=== PATIENT | male | born 1960 | race African-American/Black ===

== ENCOUNTER → 2016-10-28 | Outpatient (CLI) | payer OTHER | LOC: OD 13:02 | PROVIDERS: ATTEND Family Medicine | DX: M25.519 Pain in unspecified shoulder (principal) ==

== ENCOUNTER 2018-02-02 04:39 | Emergency (ER) | payer OTHER ==
[2018-02-02] MEDS ORDERED: DEXAMETHASONE SOD PHOSPHATE INJ 4 MG/1 ML VIAL IM ONE (06:43)
[2018-02-02] MEDS ORDERED: KETOROLAC TROMETHAMINE 60 MG/2 ML SDV IM ONE (06:43)
--- NOTE | 2018-02-02 06:43 | ER Document Report ---
ED Neck/Back Problem - General Chief Complaint: Low Back Pain Stated Complaint: BACK PAIN Time Seen by Provider: 02/02/18 06:20 Notes: 58-year-old male to the emergency department chief complaint of low back pain and shooting down the left leg. States that this happens on a regular basis and he used to get the shot of cortisone and some Toradol and it makes it all better. Denies any fever, chills, sweats. Denies any loss of bowel or bladder function. This is a chronic issue. Pain radiates down the side of the left leg. TRAVEL OUTSIDE OF THE [place] IN LAST 30 DAYS: No - HPI Onset: Last week Where: Home - Related Data Allergies/Adverse Reactions: No Known Allergies Allergy (Unverified 09/18/12 04:37) Past Medical History - General Information source: Patient - Social History Smoking Status: Never Smoker Chew tobacco use (# tins/day): No Frequency of alcohol use: None Drug Abuse: None Lives with: Family Family History: Reviewed & Not Pertinent Patient has suicidal ideation: No Patient has homicidal ideation: No Renal/ Medical History: Denies: Hx Peritoneal Dialysis Review of Systems - Review of Systems Constitutional: denies: Fever, Malaise, Weakness EENT: denies: Eye pain, Eye discharge, Double vision, Difficulty swallowing Cardiovascular: denies: Chest pain, Palpitations, Heart racing Respiratory: denies: Cough, Hurts to breathe, Short of breath Gastrointestinal: denies: Abdominal pain, Diarrhea, Nausea, Vomiting Genitourinary: denies: Burning, Dysuria, Discharge Musculoskeletal: Back pain. denies: Joint pain, Muscle pain, Leg swelling Skin: denies: Dryness, Lesions, Lumps, Rash Neurological/Psychological: denies: Confusion, Weakness, Numbness Physical Exam - Vital signs Vitals: Temp Pulse Resp BP Pulse Ox 98.9 F 66 18 144/67 H 95 02/02/18 04:44 02/02/18 04:44 02/02/18 04:44 02/02/18 04:44 02/02/18 04:44 Interpretation: Normal - General General appearance: Appears well, Alert - Respiratory Respiratory status: No respiratory distress Chest status: Nontender Breath sounds: Normal Chest palpation: Normal - Cardiovascular Rhythm: Regular Heart sounds: Normal auscultation Murmur: No - Abdominal Inspection: Normal Distension: No distension Bowel sounds: Normal Tenderness: Nontender Organomegaly: No organomegaly - Back Back: Normal, Nontender, Other - Tenderness to palpation in the left lateral leg tensor fascia rose area. No: Deformity/step-off - Neurological Neuro grossly intact: Yes Cognition: Normal Orientation: AAOx4 [place] Coma Scale Eye Opening: Spontaneous Grace Coma Scale Verbal: Oriented Grace Coma Scale Motor: Obeys Commands Grace Coma Scale Total: 15 Speech: Normal Motor strength normal: LUE, RUE, LLE, RLE Sensory: Normal Course - Re-evaluation Re-evalutation: 02/02/18 07:10 Give patient a shot of Decadron and Toradol. Given him the red flag warning signs with regards to low back pain and sciatica. Patient verbalized understanding. Will discharge in stable condition after treatment. - Vital Signs Vital signs: Temp Pulse Resp BP Pulse Ox 98.9 F 66 18 144/67 H 95 02/02/18 04:44 02/02/18 04:44 02/02/18 04:44 02/02/18 04:44 02/02/18 04:44 Discharge - Discharge Clinical Impression: Sciatic leg pain Condition: Good Disposition: HOME, SELF-CARE Instructions: Low Back Pain ([facility]), Warm Packs ([facility]) Prescriptions: Ibuprofen [Motrin 800 mg Tablet] 800 mg PO Q8H PRN 10 Days #30 tab PRN Reason: For Pain Scale 3-4 Methylprednisolone [Medrol Dosepack (4 mg/Tab) 21 Tab/Dosepak] 21 tab PO ASDIR PRN #1 dspk PRN Reason: Referrals: YULIET OLIVER MD [Primary Care Provider] - Follow up as needed
[2018-02-02 07:35] VITALS: BP 136/56
== END 2018-02-02 07:35 | disposition home or self-care (01) ==
LOC: ER 04:39
DX: M54.40 Lumbago with sciatica, unspecified side (principal)
CPT/HCPCS: 99283; 96372; J1100; J1885

== ENCOUNTER 2018-02-03 08:26 | Emergency (ER) | payer OTHER ==
[2018-02-03 08:32] VITALS: BP 168/80
[2018-02-03] MEDS ORDERED: KETOROLAC TROMETHAMINE 60 MG/2 ML SDV IM ONE (09:13)
[2018-02-03] MEDS ORDERED: OXYCODONE-ACETAMINOPHEN 5-325 MG TABLET PO ONE (09:13)
--- NOTE | 2018-02-03 09:13 | ER Document Report ---
ED General Pain - General Chief Complaint: Low Back Pain Stated Complaint: BACK PAIN Time Seen by Provider: 02/03/18 09:08 Notes: Patient was seen here yesterday for low back pain that is radiating in his left leg. Did not get his medications filled. States that he does not feel like he can go to work today because of pain still getting worse. Denies any fever chills or sweats. No change in bowel or bladder function. Shot of Toradol and Decadron yesterday. Was given a prescription for ibuprofen and Medrol Dosepak. TRAVEL OUTSIDE OF THE [place] IN LAST 30 DAYS: No - Related Data Allergies/Adverse Reactions: No Known Allergies Allergy (Verified 02/03/18 08:27) Past Medical History - General Information source: Patient - Social History Smoking Status: Current Every Day Smoker Chew tobacco use (# tins/day): No Frequency of alcohol use: Occasional Drug Abuse: None Lives with: Family Family History: Reviewed & Not Pertinent Patient has suicidal ideation: No Patient has homicidal ideation: No Renal/ Medical History: Denies: Hx Peritoneal Dialysis Past Surgical History: Denies: Hx Orthopedic Surgery Review of Systems - Review of Systems Notes: Constitutional: denies: Chills, Diaphoresis, Fever, Malaise, Weakness EENT: denies: Eye discharge, Blurred vision, Tearing, Double vision, Nose congestion, Nose discharge, Throat swelling, Mouth pain Cardiovascular: denies: Palpitations, Heart racing, Orthopnea, Dyspnea, Chest pain Respiratory: denies: Cough, Hurts to breathe, Wheezing, Shortness of breath Gastrointestinal: denies: Abdominal pain, Diarrhea, Nausea, Vomiting, Black stools, bright red blood in stool Genitourinary: denies: Burning, Dysuria, Discharge, Frequency, Flank pain, Hematuria Musculoskeletal: denies: Joint pain, Joint swelling. Significant for: Left- sided low back pain radiating down the left leg with sciatica Hematologic/Lymphatic: denies: Anemia, Easy bleeding, Easy bruising, Blood clots Neurological/Psychological: denies: Confusion, Dementia, Depression, Loss of consciousness. Denies any loss of bowel or bladder function. Skin: No lesions, no masses, no skin breakdown, no abscesses Physical Exam - Vital signs Vitals: Temp Pulse Resp BP Pulse Ox 98.4 F 71 18 168/80 H 96 02/03/18 08:31 02/03/18 08:31 02/03/18 08:31 02/03/18 08:31 02/03/18 08:31 Interpretation: Normal - General General appearance: Appears well, Alert - HEENT Head: Normocephalic, Atraumatic Eyes: Normal Pupils: PERRL - Respiratory Respiratory status: No respiratory distress Chest status: Nontender Breath sounds: Normal Chest palpation: Normal - Cardiovascular Rhythm: Regular Heart sounds: Normal auscultation Murmur: No - Abdominal Inspection: Normal Distension: No distension Bowel sounds: Normal Tenderness: Nontender Organomegaly: No organomegaly - Back Back: Normal, Tender - Left lower lumbar paraspinal muscles on the left. Tenderness to palpation left lateral leg - Extremities General upper extremity: Normal inspection, Nontender, Normal color, Normal ROM , Normal temperature General lower extremity: Normal inspection, Nontender, Normal color, Normal ROM , Normal temperature, Normal weight bearing. No: Ranjit's sign - Neurological Neuro grossly intact: Yes Cognition: Normal Orientation: AAOx4 [place] Coma Scale Eye Opening: Spontaneous Grace Coma Scale Verbal: Oriented Grace Coma Scale Motor: Obeys Commands [place] Coma Scale Total: 15 Speech: Normal Motor strength normal: LUE, RUE, LLE, RLE Sensory: Normal. No: Altered light touch - No significant discrepancies of the lower extremities. Palpable pulses bilateral lower extremities. - Psychological Associated symptoms: Normal affect, Normal mood - Skin Skin Temperature: Warm Skin Moisture: Dry Skin Color: Normal Course - Re-evaluation Re-evalutation: 02/03/18 10:28 Laboratory 02/03/18 09:20 Urine Color STRAW Urine Appearance CLEAR Urine pH 6.0 Ur Specific [place] 1.002 Urine Protein NEGATIVE Urine Glucose (UA) NEGATIVE Urine Ketones NEGATIVE Urine Blood NEGATIVE Urine Nitrite NEGATIVE Urine Bilirubin NEGATIVE Urine Urobilinogen NEGATIVE Ur Leukocyte Esterase NEGATIVE Urine WBC (Auto) 0 Urine RBC (Auto) 0 Urine Mucus (Auto) RARE Urine Ascorbic Acid NEGATIVE Lumbar Spine CT 02/03/18 09:14 IMPRESSION: Left foraminal and lateral disc protrusion at L3-4 causing moderate left foraminal narrowing. Patient has significant findings on CT scan. Will consult with pain medicine physician and see if I can get him seen by Dr. Cornelius or Dr. Christianson as soon as possible. - Vital Signs Vital signs: Temp Pulse Resp BP Pulse Ox 98.4 F 71 18 168/80 H 96 02/03/18 08:31 02/03/18 08:31 02/03/18 08:31 02/03/18 08:31 02/03/18 08:31 Discharge - Discharge Clinical Impression: Bulging of lumbar intervertebral disc Condition: Good Disposition: HOME, SELF-CARE Instructions: Herniated Disc ([facility]) Prescriptions: Oxycodone HCl/Acetaminophen [Percocet 5-325 mg Tablet] 1 - 2 tab PO Q6H PRN 5 Days #15 tablet PRN Reason: Referrals: CRISTINA CHRISTIANSON MD [ACTIVE STAFF] - 02/07/18 10:30 am
[2018-02-03 09:42] LABS: APPEARANCE,URINE CLEAR; BILIRUBIN,URINE NEGATIVE (NEGATIVE); COLOR,URINE STRAW; GLUCOSE, URINE NEGATIVE (NEGATIVE); KETONES,URINE NEGATIVE (NEGATIVE); LEUKOCYTE ESTERASE,URINE NEGATIVE (NEGATIVE); NITRITE,URINE NEGATIVE (NEGATIVE); PROTEIN,URINE NEGATIVE (NEGATIVE); URINE SPECIFIC GRAVITY 1.002; UROBILINOGEN,URINE NEGATIVE mg/dL (<2.0)
--- NOTE | 2018-02-03 09:53 | RADIOLOGY REPORT (SQ) ---
EXAM DESCRIPTION: CT LUMBAR SPINE WITHOUT COMPLETED DATE/TIME: 02/03/2018 9:34 am REASON FOR STUDY: severe back pain and numbness in left leg COMPARISON: None. TECHNIQUE: Axial images acquired through the lumbar spine without intravenous contrast. Images revi ewed with lung, soft tissue and bone windows. Reconstructed coronal and sagittal MPR images reviewed . All images stored on PACS. All CT scanners at this facility use dose modulation, iterative reconstruction, and/or weight based d osing when appropriate to reduce radiation dose to as low as reasonably achievable (ALARA). [facility]: Dose Right [facility]: CareDose [facility]: Dose Right [facility]: Teradose 4D [facility]: Rapp IT Up RADIATION DOSE: 15.6 mGy. LIMITATIONS: None. FINDINGS: SEGMENTATION: Normal. No transitional anatomy. ALIGNMENT: Normal. VERTEBRAL BODIES: No fractures. No dislocation. No acute findings. DISCS: The T11-12, T12-L1, L1-2, and L2-3 levels are unremarkable. At L3-4, very mild posterior disc bulging is present with mild facet and ligament hypertrophy. No ce ntral stenosis. No right foraminal narrowing. Moderate left foraminal narrowing related to a left f oraminal and lateral disc protrusion, best shown on sagittal image 33 and axial image 50 through 53. At L4-5, minimal posterior diffuse disc bulge and mild bilateral facet and ligament hypertrophy are p resent. No central stenosis. Mild bilateral inferior foraminal narrowing without exit L4 nerve root impingement. At L5-S1, no central or foraminal encroachment is present. Minimal posterior disc bulging. Minimal facet hypertrophy. PEDICLES, TRANSVERSE PROCESSES: No fractures. No dislocation. No acute findings. FACETS, POSTERIOR ELEMENTS: No fractures. No dislocation. No spinal stenosis. HARDWARE: None in the spine. VISUALIZED RIBS: No fractures. SOFT TISSUES: No significant or acute finding in adjacent soft tissues. OTHER: No other significant finding. IMPRESSION: Left foraminal and lateral disc protrusion at L3-4 causing moderate left foraminal narro wing. TECHNICAL DOCUMENTATION: JOB ID: [id number] Quality ID # [id number]: Final reports with documentation of one or more dose reduction techniques (e.g., Au tomated exposure control, adjustment of the mA and/or kV according to patient size, use of iterative reconstruction technique) 2010 [employer]- All Rights Reserved Reading location - IP/workstation name: [email or web address]
== END 2018-02-03 10:45 | disposition home or self-care (01) ==
LOC: ER 08:26
DX: M51.26 Other intervertebral disc displacement, lumbar region (principal); F17.200 Nicotine dependence, unspecified, uncomplicated
CPT/HCPCS: 99284; 96372; 81001; 72131; J1885

== ENCOUNTER → 2018-02-07 | Outpatient (CLI) | payer OTHER ==
--- NOTE | 2018-02-07 15:54 | RADIOLOGY REPORT (SQ) ---
EXAM DESCRIPTION: CERV SP 3 VIEW OR LESS COMPLETED DATE/TIME: 02/07/2018 1:46 pm REASON FOR STUDY: CERVICALGIA (M54.2) M54.2 CERVICALGIA COMPARISON: None. NUMBER OF VIEWS: Four views. TECHNIQUE: AP, lateral, and oblique radiographic images acquired of the cervical spine. LIMITATIONS: None. FINDINGS: MINERALIZATION: Normal. SEGMENTATION: Normal. ALIGNMENT: Reversal of the lordotic curve. VERTEBRAE: Maintained height. No fracture or worrisome bone lesion. DISCS: Multilevel disc space narrowing with osteophytes. POSTERIOR ELEMENTS: Pedicles and facets are intact. No posterior arch defects. Facet arthropathy is present. FORAMINA: Narrowed at the levels of maximal disc and facet disease. HARDWARE: None in the spine. PARASPINAL SOFT TISSUES: Normal. OTHER: No other significant finding. IMPRESSION: Cervical disc disease. TECHNICAL DOCUMENTATION: JOB ID: [id number] [employer]- All Rights Reserved Reading location - IP/workstation name: [email or web address]
== END ==
LOC: RAD 13:12
PROVIDERS: ATTEND Pain Medicine Interventional Pain Medicine
DX: M54.2 Cervicalgia (principal)
CPT/HCPCS: 72040

== ENCOUNTER → 2018-11-23 | Outpatient (CLI) | payer OTHER ==
--- NOTE | 2018-11-23 08:58 | RADIOLOGY REPORT (SQ) ---
EXAM DESCRIPTION: U/S ABD AORTIC SCREENING COMPLETED DATE/TIME: 11/23/2018 8:42 am REASON FOR STUDY: AORTIC ANEURYSM OF UNSPECIFIED SITE, WITHOUT RUPTURE I71.9 AORTIC ANEURYSM OF UNS PECIFIED SITE, WITHOUT RUPTURE COMPARISON: None. TECHNIQUE: Static and dynamic grayscale images acquired of the aorta and stored on PACs. Selected co michelle Doppler and spectral images recorded. LIMITATIONS: None. FINDINGS: AORTIC CALIBER MAXIMAL PROXIMAL: 2.7 cm. MID: 2.1 cm. DISTAL: 2.0 cm. ILIAC DIAMETER RIGHT: 1.2 cm. LEFT: 1.3 cm. OTHER: Scattered atherosclerotic plaque throughout the visualized aorta. IMPRESSION: Proximal abdominal aorta measures up to 2.7 cm with scattered atherosclerosis. Follow-u p recommendations as below. COMMENT: Aortic aneurysm imaging followup: 2.6-2.9 cm Every 5 years* *Based upon the Society for Vascular Surgery Guidelines: J Vasc Surg. 2009 Oct;50(4 Suppl):S2-49 *For aortas of maximum diameter of 2.6-2.9 cm meeting the criteria for AAA (?1.5 x proximal normal se gment) TECHNICAL DOCUMENTATION: JOB ID: [id number] [employer]- All Rights Reserved Reading location - IP/workstation name: [email or web address]
== END ==
LOC: RAD 07:51
PROVIDERS: ATTEND Physician Assistant
DX: Z13.6 Encounter for screening for cardiovascular disorders (principal); I71.9 Aortic aneurysm of unspecified site, without rupture
CPT/HCPCS: 76706

== ENCOUNTER → 2019-12-01 | Outpatient (CLI) | payer OTHER ==
--- NOTE | 2019-12-01 15:17 | RADIOLOGY REPORT (SQ) ---
EXAM DESCRIPTION: SHOULDER RIGHT 2 OR MORE VIEWS IMAGES COMPLETED DATE/TIME: 12/01/2019 3:02 pm REASON FOR STUDY: PAIN IN RIGHT SHOULDER COMPARISON: None. NUMBER OF VIEWS: Three views right shoulder LIMITATIONS: None. FINDINGS: AC joint may be minimally widened, 9 mm. Correlate with any injury history to suggest low grade separation. This may otherwise be physiologic, depending on clinical presentation. No fractu re or bone lesion. Clear right lung. OTHER: No other significant finding. IMPRESSION: As above. TECHNICAL DOCUMENTATION: JOB ID: [id number] Reading location - IP/workstation name: [email or web address]
== END ==
LOC: OD 14:52
PROVIDERS: ATTEND Physician Assistant
DX: M25.511 Pain in right shoulder (principal)

== ENCOUNTER 2020-07-14 16:56 | Emergency (ER) | payer OTHER ==
[2020-07-14] MEDS ORDERED: DILTIAZEM HCL/D5W 125 MG/125 ML RTUINJ IV ONE (17:01)
[2020-07-14] MEDS ORDERED: DILTIAZEM HCL/D5W 125 MG/125 ML RTUINJ IV PRN (17:14)
[2020-07-14 17:17] LABS: ABSOLUTE BASOPHILS # (AUTO) 0.1 10^3/uL (0.0-0.2); ABSOLUTE EOSINOPHILS # (AUTO) 0.1 10^3/uL (0.0-0.6); ABSOLUTE LYMPHOCYTES (AUTO) 2.6 10^3/uL (0.5-4.7); ABSOLUTE MONOCYTES (AUTO) 0.5 10^3/uL (0.1-1.4); BASOPHILS % (AUTO) 1.3 % (0-2); EOSINOPHILS % (AUTO) 2.3 % (0-6); HEMATOCRIT 42.7 % (37.9-51.0); HEMOGLOBIN 14.2 g/dL (13.5-17.0); LYMPHOCYTES % (AUTO) 48.7 % (13-45); MEAN CORPUSCULAR HEMOGLOBIN 27.3 pg (27.0-33.4); MEAN CORPUSCULAR HGB CONC 33.3 g/dL (32.0-36.0); MEAN CORPUSCULAR VOLUME 82 fl (80-97); MONOCYTES % (AUTO) 10.2 % (3-13); PLATELET COUNT 203 10^3/uL (150-450); RED BLOOD COUNT 5.19 10^6/uL (4.35-5.55); RED CELL DISTRIBUTION WIDTH 14.1 % (11.5-14.0); SEGMENTED NEUTROPHILS % (AUTO) 37.5 % (42-78); TOTAL CELLS COUNTED % (AUTO) 100 %; WHITE BLOOD COUNT 5.3 10^3/uL (4.0-10.5)
[2020-07-14 17:40] LABS: ALBUMIN 4.3 g/dL (3.5-5.0); ALKALINE PHOSPHATASE 59 U/L (38-126); ANION GAP 10 (5-19); ASPARTATE AMINO TRANSFERASE 30 U/L (17-59); BILIRUBIN,DIRECT 0.2 mg/dL (0.0-0.4); BILIRUBIN,TOTAL 0.4 mg/dL (0.2-1.3); BLOOD UREA NITROGEN 13 mg/dL (7-20); CALCIUM 9.5 mg/dL (8.4-10.2); CARBON DIOXIDE 22 mmol/L (22-30); CHLORIDE 106 mmol/L (98-107); CREATINE KINASE 233 U/L (55-170); GLUCOSE 101 mg/dL (75-110); POTASSIUM 3.4 mmol/L (3.6-5.0); TOTAL PROTEIN 7.1 g/dL (6.3-8.2)
[2020-07-14 18:38] LABS: PHOSPHORUS 2.9 mg/dL (2.5-4.5)
--- NOTE | 2020-07-14 18:46 | RADIOLOGY REPORT (SQ) ---
EXAM DESCRIPTION: CHEST SINGLE VIEW IMAGES COMPLETED DATE/TIME: 07/14/2020 6:01 pm REASON FOR STUDY: chest pain COMPARISON: Two-view chest 06/04/2015 EXAM PARAMETERS: NUMBER OF VIEWS: One view. TECHNIQUE: Single frontal radiographic view of the chest acquired. RADIATION DOSE: NA LIMITATIONS: None. FINDINGS: LUNGS AND PLEURA: No opacities, masses or pneumothorax. No pleural effusion. MEDIASTINUM AND HILAR STRUCTURES: No masses. Contour normal. HEART AND VASCULAR STRUCTURES: Heart normal in size. Normal vasculature. BONES: No acute findings. HARDWARE: None in the chest. OTHER: No other significant finding. IMPRESSION: NO ACUTE RADIOGRAPHIC FINDING IN THE CHEST. TECHNICAL DOCUMENTATION: JOB ID: [id number] [employer]- All Rights Reserved Reading location - IP/workstation name: [email or web address]
[2020-07-14 19:05] LABS: CREATINE KINASE MB 1.69 ng/mL (<4.55)
[2020-07-14 19:09] LABS: TROPONIN I < 0.012 ng/mL
--- NOTE | 2020-07-14 19:38 | ER Document Report ---
ED Cardiac - General TRAVEL OUTSIDE OF THE [place] IN LAST 30 DAYS: No <GREGORY FRANCES - Last Filed: 07/14/20 21:20> <YESSIHÉCTOR Roderick - Last Filed: 07/14/20 23:34> - General Chief Complaint: Chest Pain Stated Complaint: CHEST PAIN Time Seen by Provider: 07/14/20 17:35 Primary Care Provider: ERIKA MILTON MD [ACTIVE STAFF] - Follow up as needed YULIET VARGAS MD [Primary Care Provider] - Follow up as needed - HPI Notes: 60-year-old male presents to ED for evaluation of patient starting this evening. Patient reports he felt his heart racing while he was barbecuing. Notes that he felt like he could not catch his breath since his heart was racing so quickly. He reports that they called EMS and determined his heart rate to be well over 200. States that he was given a medication in route by EMS determined to be adenosine in order to slow his heart rate. They determined he to be in atrial fibrillation and started him on Cardizem. On review of EMS records, he received 18 mg IV bolus. Denies a history of cardiac complaints in the past. Reports he has not seen a pants busheler in 5 to 6 years. He denies history of atrial fibrillation. Denies heavy alcohol usage. Denies any chest pain associated with this. Denies nausea, vomiting, dizziness, lightheadedness, abdominal discomfort, or changes in bowel or bladder habit. Denies any bleeding. Patient reports he has not had a recent stress test. Patient does not take any aspirin or other anticoagulants on a daily basis. He denies concerns for Covid and has not done any recent travel at this time. (GREGORY FRANCES) - Related Data Allergies/Adverse Reactions: No Known Allergies Allergy (Verified 02/03/18 08:27) Past Medical History - Social History Smoking Status: Current Every Day Smoker Frequency of alcohol use: Heavy Drug Abuse: None Family History: Reviewed & Not Pertinent Patient has homicidal ideation: No - Past Medical History Cardiac Medical History: Reports: Hx Hypercholesterolemia, Hx Hypertension Renal/ Medical History: Denies: Hx Peritoneal Dialysis Past Surgical History: Denies: Hx Orthopedic Surgery <GREGORY FRANCES - Last Filed: 07/14/20 21:20> Review of Systems <GREGORY FRANCES - Last Filed: 07/14/20 21:20> - Review of Systems Notes: Constitutional: Negative for fever. HENT: Negative for sore throat. Eyes: Negative for visual changes. Cardiovascular: Negative for chest pain. Positive for palpitations Respiratory: Negative for shortness of breath. Gastrointestinal: Negative for abdominal pain, vomiting or diarrhea. Genitourinary: Negative for dysuria. Musculoskeletal: Negative for back pain. Skin: Negative for rash. Neurological: Negative for headaches, weakness or numbness. 10 point ROS negative except as marked above and in HPI. (GREGORY FRANCES) Physical Exam <JUAN DANIELGREGORY Victor - Last Filed: 07/14/20 21:20> - Vital signs Vitals: Resp 16 07/14/20 16:56 General: No acute distress. Alert and oriented x3. Sitting comfortably in a stretcher. Skin: Intact without any jaundice, pallor, or erythema. Warm and dry. HEENT: Normocephalic, atraumatic. Pupils are equal round reactive to light and accommodation. Extraocular movements are intact. TMs without erythema or bulging. Canals are clear. Nares patent without any discharge. Teeth in good condition. Pharynx without erythema, edema, or exudates. No tonsillar enlargement. Uvula is midline. Airway is patent. Neck: Supple with no lymphadenopathy. Full range of motion. Heart: Irregularly irregular rapid rate and rhythm. No murmurs, rubs, or gallops. Lungs: Clear to auscultation bilaterally. No wheezes, rhonchi, rales. Equal chest expansion. No retractions. Abdomen: Soft, nontender to palpation, nondistended. Positive bowel sounds in all 4 quadrants. No hepatosplenomegaly. No masses. No CVA tenderness bilaterally. Neuro: GCS 15. Moving all extremities without discomfort. Extremities: No calf tenderness or edema. No cyanosis or clubbing. Radial and pedal pulses 2+ bilaterally. Brisk capillary refill. Psych: Mood and affect appropriate. (GREGORY FRANCES) Course - Laboratory Results Result Diagrams: 07/14/20 16:59 07/14/20 16:59 <GREGORY FRANCES - Last Filed: 07/14/20 21:20> - Laboratory Results Result Diagrams: 07/14/20 16:59 07/14/20 16:59 Critical Laboratory Results Reviewed: Yes Attending or Supervising Physician who Reviewed Labs: ISAAK LEAL - aware of elevated troponin and a-fib - Radiology Results Critical Radiology Results Reviewed: No Critical Results - EKG Interpretation by [place] Rhythm: A.Fib [place]/QRS: No: Right axis deviation, Left axis deviation, RBBB, LBBB, IVCD, LAHB /LAFB, LPHB/LPFB, Bifasicular block Voltage: Consistent with LVH Heart block present: No: 1st Degree, Mobitz 1, Mobitz 2, CHB (3rd degree block) When compared to previous EKG there are: No significant change <HÉCTOR DICKSON - Last Filed: 07/14/20 23:34> - Re-evaluation Re-evalutation: 07/14/20 21:16 60-year-old male presents to ED for evaluation of episode of acute A. fib with RVR. Patient was found of a heart rate over 200 by EMS. They gave him adenosi ne to determine his rate was atrial fibrillation and gave him Cardizem as a bolus. On arrival to the emergency department, patient has a rate in the 120s and is still in A. fib. Patient was placed on a Cardizem drip with an initial rate of 5. We did not rebolused him. Patient was found to require up titration and was placed on 7.5. Patient has been holding well in the 90s to low 100s at this rate. Patient's blood work was obtained. There is no evidence of electrolyte abnormalities or evidence of infection. Magnesium is within normal limits. Troponin is negative. Chest x-ray shows no evidence of acute cardiac or pulmonary pathology. Results were all discussed with the patient. At this time, I did place a consult to Dr. Milton of cardiology. We discussed the indications for admission versus outpatient management. The initial plan is to give patient 90 mg of Cardizem and titrate down his Cardizem drip and 1 hour after administration of medication. If patient is able to persist for an additional hour without large elevations in his heart rate he recommends that patient be discharged home on 60 mg every 6 hours of Cardizem. He also recommends patient be placed on 5 mg twice daily of Eliquis for the next month should they need to cardiovert patient. Was determined as patient has a [id number] score of 1. I did discuss all of this with the patient and should he fail this course of management he does see Dr. Vargas for outpatient care and will be admitted to Dr. Vargas service in care of Dr. Bernardo who is covering patient is agreeable with this plan of care for further management at this time. I have signed patient out to MARCO ANTONIO Dickson who will determine his disposition. 07/14/20 21:20 (GREGORY FRANCES) 07/14/20 23:17 I assumed care of patient at shift change at 8 PM. Briefly, patient presented the ER with acute onset of A. fib with RVR with associated palpitations and chest pain. Reportedly has rate near 200. He was placed on a Cardizem drip which did allow him to achieve rate control in the low 100s and resolved his symptoms. Previous provider had spoke with cardiology and they had recommended giving the patient 90 mg of Cardizem p.o. and then titrating his drip down and discontinue it at 1 hour. Then continue to monitor patient in rate and if he remains asymptomatic with good rate control he may discharge home with Cardizem and Eliquis cardiology follow-up. I have monitored the patient for the past 2 hours since he received p.o. Cardizem and over an hour since his drip was stopped and he has remained well rate controlled ranging from 90s to 110. He remains asymptomatic in the ED and says he basically just feels fatigued. He denies any palpitations, chest pain, shortness of breath. His 3hr troponin did slightly elevate from 0.0125 to 0.025, Dr. Martinez is aware and she agrees that this is likely due to the A. fib with RVR and not due to ischemia or an acute CA. I discussed the current plan with the patient and significant other and they are agreeable to discharging home. We will give them a dose of Cardizem to take home so that he may take it in the water trainer since pharmacies are not open right now he received his first dose of Eliquis in the ED and does not need another dose until midmorning tomorrow. He is to call cardiology to schedule a follow-up for in the next few days as well as his primary care doctor. Strict return factors were discussed regarding chest pain, shortness of breath, syncope, palpitations or extremely elevated heart rate. They can monitor his heart rate at home by checking his pulse using a timer, fitness watches, [id number] pulse oximeter, or he may return here if he has any concerns. (HÉCTOR DICKSON) - Vital Signs Vital signs: Temp Pulse Resp BP Pulse Ox 18 109/71 94 07/14/20 23:01 07/14/20 23:00 07/14/20 19:29 - Laboratory Results Laboratory Results Interpreted: 07/14/20 07/14/20 16:59 16:59 RDW 14.1 H Lymph % (Auto) 48.7 H Seg Neutrophils % 37.5 L Potassium 3.4 L Creatine Kinase 233 H - EKG Interpretation by Me Additional EKG results interpreted by me: 07/14/20 23:33 ECG reviewed by ER physician. no STEMI (HÉCTOR DICKSON) Discharge <GREGORY FRANCES - Last Filed: 07/14/20 21:20> <HÉCTOR DICKSON - Last Filed: 07/14/20 23:34> - Discharge Clinical Impression: Atrial fibrillation with RVR Condition: Stable Disposition: HOME, SELF-CARE Instructions: Atrial Fibrillation ([facility]) Additional Instructions: Take the Cardizem and Eliquis as scheduled. Call cardiology to schedule an appointment for soon as possible for follow-up. You may also follow-up with your primary care doctor in the next day or two for recheck. Return to the ER if your condition worsenschest pain, palpitations, shortness of breath, elevated heart rate, or any other concerning signs or symptoms.. Prescriptions: Diltiazem HCl [Cardizem 60 mg Tablet] 60 mg PO Q6H #60 tablet Apixaban [Eliquis 5 mg Tablet] 5 mg PO BID 15 Days #30 tablet Referrals: YULIET VARGAS MD [Primary Care Provider] - Follow up as needed ERIKA MILTON MD [ACTIVE STAFF] - Follow up as needed
[2020-07-14] MEDS ORDERED: DILTIAZEM HCL 90 MG TABLET PO ONE (19:50)
[2020-07-14] MEDS ORDERED: APIXABAN 5 MG TABLET PO ONE (19:50)
[2020-07-14] MEDS ORDERED: ONDANSETRON HCL INJ/PF 4 MG/2 ML SDV IV ONE (20:03)
[2020-07-14] MEDS ORDERED: ACETAMINOPHEN 325 MG TABLET PO ONE (20:03)
[2020-07-14] MEDS ORDERED: DILTIAZEM HCL 90 MG TABLET ONE (20:36)
--- NOTE | 2020-07-14 20:36 | EKG REPORT ---
SEVERITY:- ABNORMAL ECG - ATRIAL FIBRILLATION LVH WITH SECONDARY REPOLARIZATION ABNORMALITY ANTERIOR Q WAVES, POSSIBLY DUE TO LVH : Confirmed by: Elena Law MD 14-Jul-2020 20:35:24
[2020-07-14] MEDS ORDERED: POTASSIUM CHLORIDE 20 MEQ PACKET PO ONE (21:21)
[2020-07-14] MEDS ORDERED: DILTIAZEM HCL 60 MG TABLET PO ONE (23:15)
--- NOTE | 2020-07-14 23:56 | EKG REPORT ---
SEVERITY:- ABNORMAL ECG - ATRIAL FIBRILLATION, V-RATE 82-134 LVH WITH SECONDARY REPOLARIZATION ABNORMALITY : Confirmed by: Elena Law MD 14-Jul-2020 23:55:20
[2020-07-15 00:07] VITALS: BP 98/62
== END 2020-07-15 00:07 | disposition home or self-care (01) ==
LOC: ER 16:56
DX: I48.91 Unspecified atrial fibrillation (principal); I10 Essential (primary) hypertension; F17.200 Nicotine dependence, unspecified, uncomplicated
CPT/HCPCS: 93005; 99285; 96375; 96365; 96366; 36415; 82553; 82550; 83735; 84100; 85025; 80053; 84484; 71045; 93010; J3490 ×3; J2405